=== PATIENT | male | born 1940 | race Caucasian/White ===

== ENCOUNTER 2023-06-04 12:58 | Outpatient (CLI) | payer MEDICARE | END 2023-06-04 12:59 | disposition home or self-care (01) | LOC: CSHWCC 12:58 | PROVIDERS: ATTEND Nurse Practitioner Family | DX: R60.9 Edema, unspecified (principal); T81.89XD Other complications of procedures, not elsewhere classified, subsequent encounter; S81.002D Unspecified open wound, left knee, subsequent encounter | CPT/HCPCS: 11042; 29581; 97139; G0463; 88305; 88342; 99203 ==

== ENCOUNTER 2023-06-18 13:49 | Outpatient (CLI) | payer MEDICARE | END 2023-06-18 13:50 | disposition home or self-care (01) | LOC: CSHWCC 13:49 | PROVIDERS: ATTEND Nurse Practitioner Family | DX: I10 Essential (primary) hypertension (principal) | CPT/HCPCS: 97139; G0463; 99212 ==